=== PATIENT | male | born 1940 | race American Indian/Alaskan Native ===

== ENCOUNTER 2017-07-14 08:44 | Emergency (ER) | payer MEDICARE, OTHER ==
[2017-07-14 09:20] LABS: Basophils % (Auto) 0.4 % (0.0-1.8); Eosinophils % (Auto) 4.1 % (0.0-4.3); Hematocrit 30.4 % (35.5-45.6); Hemoglobin 10.1 gm/dl (11.8-15.2); Mean Corpuscular HGB Conc 33 % (32-34); Mean Corpuscular Hemoglobin 31 pg (28-32); Mean Corpuscular Volume 93 fl (84-94); Platelet Count 157 K/mm3 (140-440); Red Blood Count 3.25 M/mm3 (3.65-5.03); Red Cell Distribution Width 14.6 % (13.2-15.2); White Blood Count 6.6 K/mm3 (4.5-11.0)
[2017-07-14 09:37] LABS: Albumin 3.1 g/dL (3.9-5); Albumin/Globulin Ratio 0.5 %; BUN/Creatinine Ratio 18.12; Bilirubin,Total 0.4 mg/dL (0.1-1.2); Chloride 106.6 mmol/L (98-107); Potassium 3.8 mmol/L (3.6-5.0); Total Protein 9.7 g/dL (6.3-8.2)
[2017-07-14 12:04] LABS: Bacteria,Urine 2+ /HPF (Negative); Bilirubin,Urine NEG (Negative); Blood,Urine SM (Negative); Ketones,Urine NEG (Negative); Leukocyte Esterase,Urine SM (Negative); Mucus,Urine FEW /HPF; Nitrite,Urine NEG (Negative); Urobilinogen,Urine < 2.0 mg/dL (<2.0)
--- NOTE | 2017-07-14 12:26 | Emergency Department Report ---
ED Male HPI - General Chief complaint: Abdominal Pain Stated complaint: BLADDER PROBLEM Time Seen by Provider: 07/14/17 11:58 Source: patient Mode of arrival: Wheelchair Limitations: No Limitations - History of Present Illness Initial comments: 76-year-old male with urinary frequency and scrotal rash. Patient states that he's had a scrotal rash or several weeks but it is worsened last couple days. He has some irritation around the scrotum. He denies fevers chills nausea vomiting. He also states she's been noticing he's had urinary frequency. He feels like he can't control his bladder. He denies dysuria, nausea vomiting. No pain. -: Gradual Radiation: none Severity: mild Quality: burning Improves with: none Worsens with: none - Related Data Home Medications Medication Instructions Recorded Confirmed Last Taken Insulin Glargine,Hum.rec.anlog 37 units SQ QHS 09/21/14 09/21/14 Unknown [Lantus] Insulin Regular, Human Inj 11 units SQ AC 09/21/14 09/21/14 Unknown [Novolin R Inj] Previous Rx's Medication Instructions Recorded Last Taken Type Levofloxacin [Levaquin TAB] 500 mg PO QDAY #9 tablet 07/14/17 Unknown Rx Nystatin [Nystop Powder] 1 applicatio TP BID #15 gm 07/14/17 Unknown Rx Allergies Allergy/AdvReac Type Severity Reaction Status Date / Time No Known Allergies Allergy Verified 05/03/14 07:13 ED Review of Systems ROS: Stated complaint: BLADDER PROBLEM Other details as noted in HPI Constitutional: denies: fever, malaise Cardiovascular: denies: chest pain, palpitations Gastrointestinal: denies: abdominal pain, nausea, diarrhea, constipation Genitourinary: urgency. denies: dysuria, frequency, hematuria ED Past Medical Hx - Past Medical History Hx Hypertension: Yes Hx Diabetes: Yes Additional medical history: Hypercholesterolemia - Surgical History Additional Surgical History: BACK - Social History Smoking Status: Never Smoker Substance Use Type: None - Medications Home Medications: Home Medications Medication Instructions Recorded Confirmed Last Taken Type Insulin Glargine,Hum.rec.anlog 37 units SQ QHS 09/21/14 09/21/14 Unknown History [Lantus] Insulin Regular, Human Inj 11 units SQ AC 09/21/14 09/21/14 Unknown History [Novolin R Inj] Levofloxacin [Levaquin TAB] 500 mg PO QDAY #9 tablet 07/14/17 Unknown Rx Nystatin [Nystop Powder] 1 applicatio TP BID #15 gm 07/14/17 Unknown Rx ED Physical Exam - General Limitations: No Limitations - Head Head exam: Present: atraumatic, normocephalic - Eye Eye exam: Present: normal appearance. Absent: scleral icterus, conjunctival injection - Neck Neck exam: Absent: lymphadenopathy - Respiratory Respiratory exam: Present: normal lung sounds bilaterally - Cardiovascular Cardiovascular Exam: Present: regular rate, normal rhythm, normal heart sounds - GI/Abdominal GI/Abdominal exam: Present: soft. Absent: distended, tenderness, guarding, rebound - exam: Present: other (multiple scrotal excoriations and skin breakdown. No erythema. Nontender exam.) - Extremities Exam Extremities exam: Present: normal inspection - Neurological Exam Neurological exam: Present: alert, oriented X3, normal gait - Psychiatric Psychiatric exam: Present: normal affect, normal mood - Skin Skin exam: Present: warm, dry ED Medical Decision Making - Lab Data Result diagrams: 07/14/17 08:58 07/14/17 08:58 Critical care attestation.: If time is entered above; I have spent that time in minutes in the direct care of this critically ill patient, excluding procedure time. ED Disposition Clinical Impression: UTI (urinary tract infection) Disposition: DC-01 TO HOME OR SELFCARE Is pt being admited?: No Condition: Stable Additional Instructions: You have a likely fungal infection on your scrotum. You need to watch this very closely as it could become infected and this could be very serious. Please continue to use the powder on the scrotum and take your oral antibiotics. Prescriptions: Levofloxacin [Levaquin TAB] 500 mg PO QDAY #9 tablet Nystatin [Nystop Powder] 1 applicatio TP BID #15 gm Referrals: PRIMARY CARE, [Primary Care Provider] - 3-5 Days
[2017-07-14] MEDS ORDERED: MYCOSTATIN TP ONE (12:47)
[2017-07-14] MEDS ORDERED: LEVAQUIN PO ONE (14:24)
== END 2017-07-14 15:07 | disposition home or self-care (01) ==
LOC: ED 08:44
DX: N39.0 Urinary tract infection, site not specified (principal); I10 Essential (primary) hypertension; E11.9 Type 2 diabetes mellitus without complications; E78.00 Pure hypercholesterolemia, unspecified; Z79.4 Long term (current) use of insulin
CPT/HCPCS: 36415; 80053; 81001; 82962; 83690; 85025; 99283

== ENCOUNTER 2020-06-05 09:21 | Emergency (ER) | payer MEDICARE, OTHER ==
--- NOTE | 2020-06-05 09:55 | Emergency Department Report ---
ED CPR HPI - General Chief Complaint: Cardiac Arrest/CPR Stated Complaint: CARDIAC ARREST WITH CPR Time Seen by Provider: 06/05/20 09:45 Source: EMS Mode of arrival: Stretcher Limitations: Other - History of Present Illness Initial Comments: 79-year-old male was found in the home setting in asystole. Medics intubated the patient and provided CPR. By the time of arrival the patient has had 4 doses of epinephrine without return of spontaneous circulation. Patient arrived with no signs of life in asystole. Thereby, further resuscitative efforts were deemed futile. One of the patient's daughters was dressed in a scrub suit. She seemed to be medically literate. She stated that the patient had altered mental status since yesterday but that his vital signs were stable. He was found unresponsive this morning. MD Complaint: found unresponsive -: unknown Place: home Bystander CPR Performed: Yes (I believe) Initial Findings in the Field: systole (No signs of life) ROSC in the Field: No Associated Symptoms: other (Altered mental status) Treatments Prior to Arrival: intubation, epinephrine mgs # (4) - Related Data Home Medications Medication Instructions Recorded Confirmed Last Taken Insulin Glargine,Hum.rec.anlog 37 units SQ QHS 09/21/14 09/21/14 Unknown [Lantus] Insulin Regular, Human Inj 11 units SQ AC 09/21/14 09/21/14 Unknown [Novolin R Inj] Previous Rx's Medication Instructions Recorded Last Taken Type Nystatin [Nystop Powder] 1 applicatio TP BID #15 gm 07/14/17 Unknown Rx levoFLOXacin [Levaquin TAB] 500 mg PO QDAY #9 tablet 07/14/17 Unknown Rx Allergies Allergy/AdvReac Type Severity Reaction Status Date / Time No Known Allergies Allergy Verified 05/03/14 07:13 ED Review of Systems ROS: Stated complaint: CARDIAC ARREST WITH CPR Other details as noted in HPI Comment: Unobtainable due to pts medical conditions ED Past Medical Hx - Past Medical History Previous Medical History?: Yes Hx Hypertension: Yes Hx Diabetes: Yes Additional medical history: Hypercholesterolemia - Surgical History Past Surgical History?: Yes Additional Surgical History: BACK - Social History Smoking Status: Never Smoker Substance Use Type: None - Medications Home Medications: Home Medications Medication Instructions Recorded Confirmed Last Taken Type Insulin Glargine,Hum.rec.anlog 37 units SQ QHS 09/21/14 09/21/14 Unknown History [Lantus] Insulin Regular, Human Inj 11 units SQ AC 09/21/14 09/21/14 Unknown History [Novolin R Inj] Nystatin [Nystop Powder] 1 applicatio TP BID #15 gm 07/14/17 Unknown Rx levoFLOXacin [Levaquin TAB] 500 mg PO QDAY #9 tablet 07/14/17 Unknown Rx ED Physical Exam - General Limitations: Other - Head Head exam: Present: atraumatic - Eye Pupils: Present: other (Fixed dilated) - ENT ENT exam: Present: normal exam - Neck Neck exam: Present: normal inspection - Respiratory Respiratory exam: Present: normal lung sounds bilaterally (With Ambu bag assist) - Cardiovascular Cardiovascular Exam: Present: other (Asystole) - GI/Abdominal GI/Abdominal exam: Absent: distended - Extremities Exam Extremities exam: Present: other (I/O catheter in tibia) - Neurological Exam Neurological exam: Present: other (GCS is 3) - Skin Skin exam: Present: warm ED Course - Reevaluation(s) Reevaluation #1: Pronounced DOA. Family counseled. 06/05/20 09:49 ED Medical Decision Making - EKG Data Monitor shows asystole 06/05/20 09:55 Critical care attestation.: If time is entered above; I have spent that time in minutes in the direct care of this critically ill patient, excluding procedure time. ED Disposition Clinical Impression: Cardiac arrest Disposition: DC-20 Is pt being admited?: No Does the pt Need Aspirin: No Condition: Stable Time of Disposition: 09:56
== END 2020-06-05 15:24 ==
LOC: ED 09:21
DX: I46.9 Cardiac arrest, cause unspecified (principal); I10 Essential (primary) hypertension; E11.9 Type 2 diabetes mellitus without complications; E78.00 Pure hypercholesterolemia, unspecified; Z79.899 Other long term (current) drug therapy; Z79.4 Long term (current) use of insulin
CPT/HCPCS: 92950